=== PATIENT | male | born 1995 | race African-American/Black ===

== ENCOUNTER 2022-09-16 16:51 | Emergency (ER) | payer OTHER, SELFPAY ==
[2022-09-16] MEDS ORDERED: Dexamethasone 4 MG TAB ONE (18:26)
== END 2022-09-16 18:50 | disposition home or self-care (01) ==
LOC: CSHERS 16:51
DX: J02.9 Acute pharyngitis, unspecified (principal); Z87.891 Personal history of nicotine dependence
CPT/HCPCS: 87081; 87430; 99283; J8540